=== PATIENT | male | born 1985 | race African-American/Black ===

== ENCOUNTER → 2018-07-25 | Outpatient (CLI) | payer OTHER ==
[2018-07-25 17:22] LABS: Basophils # (A) 0.1 k/uL (0-0.2); Basophils % (A) 1 %; Eosinophils # (A) 0.1 k/uL (0-0.7); Eosinophils % (A) 3 %; HCT 49.3 % (39.0-53.0); HGB 15.7 gm/dL (13.0-17.5); Lymphocytes # (A) 2.2 k/uL (1.0-4.8); Lymphocytes % (A) 48 %; MCH 27.6 pg (25.0-35.0); MCHC 31.9 g/dL (31.0-37.0); MCV 86.5 fL (80.0-100.0); Mean Platelet Volume 8.6; Monocytes # (A) 0.3 k/uL (0-1.0); Monocytes % (A) 7 %; Neutrophils # (A) 1.8 k/uL (1.3-7.7); Neutrophils % (A) 38 %; Platelet Count 226 k/uL (150-450); RDW 14.3 % (11.5-15.5); WBC 4.6 k/uL (3.8-10.6)
[2018-07-25 17:26] LABS: Albumin 4.9 g/dL (3.5-5.0); Potassium 4.6 mmol/L (3.5-5.1); Total Bilirubin 0.7 mg/dL (0.2-1.3)
--- NOTE | 2018-07-26 07:27 | US ---
EXAMINATION TYPE: US kidneys/renal and bladder DATE OF EXAM: 07/25/2018 COMPARISON: NONE CLINICAL HISTORY: Flank Pain R10.9. Back pain EXAM MEASUREMENTS: Right Kidney: 10.2 x 5.1 x 5.4 cm Left Kidney: 10.4 x 6.5 x 5.9 cm Right Kidney: 0.4cm echogenic focus mid pole, 1.6 x 1.3cm cystic area superior pole, 1.7 x 1.6cm cyst ic area inferior pole Left Kidney: 0.5cm echogenic focus mid pole Bladder: wnl Bilateral Jets seen: yes No hydronephrosis bilaterally. IMPRESSION: 1. Nonobstructing bilateral renal calculi. 2. Right renal simple appearing cysts.
== END ==
LOC: RADUSWWP 15:45
PROVIDERS: ATTEND Family Medicine
DX: N20.0 Calculus of kidney (principal); N28.1 Cyst of kidney, acquired; R10.9 Unspecified abdominal pain; M54.5 Low back pain; R53.83 Other fatigue
CPT/HCPCS: 36415; 76770; 80053; 85025